=== PATIENT | female | born 1985 | race American Indian/Alaskan Native ===

== ENCOUNTER 2022-03-10 00:35 | Emergency (ER) | payer SELFPAY ==
[2022-03-10] MEDS ORDERED: SODIUM CHLORIDE 0.9% 1000 ML 1,000 ML IV ONE (04:37)
--- NOTE | 2022-03-10 05:46 | Emergency Department Report ---
ED Psych HPI - General Chief Complaint: Psych Stated Complaint: MH Time Seen by Provider: 03/10/22 05:44 Source: patient Mode of arrival: Ambulatory - History of Present Illness Initial Comments: pt is psychotic , history fo the same , auditory hallucination picked up by EMS in street , no SI or HI responding to internal stimuli -: unknown Associated Psychiatric Symptoms: racing thoughts, auditory hallucinations History of same: Yes Quality: constant Improves With: none Worsens With: none - Related Data Allergies Allergy/AdvReac Type Severity Reaction Status Date / Time peanut Allergy Swelling Verified 03/10/22 04:02 ED Review of Systems ROS: Stated complaint: MH Other details as noted in HPI Comment: Unobtainable due to pts medical conditions ED Past Medical Hx - Past Medical History Previous Medical History?: No Hx Hypertension: No - Social History Smoking Status: Current Every Day Smoker Substance Use Type: Marijuana, Methamphetamines ED Physical Exam - General Limitations: No Limitations General appearance: alert, anxious - Head Head exam: Present: atraumatic, normocephalic - Eye Eye exam: Present: normal appearance - ENT ENT exam: Present: mucous membranes moist - Neck Neck exam: Present: normal inspection - Respiratory Respiratory exam: Present: normal lung sounds bilaterally. Absent: respiratory distress - Cardiovascular Cardiovascular Exam: Present: normal rhythm, tachycardia. Absent: systolic murmur, diastolic murmur, rubs, gallop - GI/Abdominal GI/Abdominal exam: Present: soft, normal bowel sounds - Extremities Exam Extremities exam: Present: normal inspection - Back Exam Back exam: Present: normal inspection - Neurological Exam Neurological exam: Present: alert, oriented X3 - Psychiatric Psychiatric exam: Present: agitated, anxious, flat affect, manic - Skin Skin exam: Present: warm, dry, intact, normal color. Absent: rash ED Course Vital Signs 03/10/22 03/10/22 03/10/22 04:29 13:56 23:17 Temperature 97.3 F L 98.6 F 98.5 F Pulse Rate 136 H 105 H 94 H Respiratory 16 20 20 Rate Blood Pressure 125/87 112/81 140/71 [Left] O2 Sat by Pulse 20 L 100 100 Oximetry 03/11/22 03/11/22 03/11/22 11:22 13:24 13:59 Temperature Pulse Rate 94 H Respiratory 16 Rate Blood Pressure 138/84 [Left] O2 Sat by Pulse 99 99 99 Oximetry ED Medical Decision Making - Lab Data Result diagrams: 03/10/22 14:52 03/10/22 14:52 Critical care attestation.: If time is entered above; I have spent that time in minutes in the direct care of this critically ill patient, excluding procedure time. ED Disposition Clinical Impression: Psychosis Disposition: [facility] Is pt being admited?: No Does the pt Need Aspirin: No Condition: Undetermined Referrals: PRIMARY CARE, [Primary Care Provider] - 3-5 Days
[2022-03-10 15:10] LABS: Basophils # (Auto) 0.1 K/mm3 (0.0-0.1); Basophils % (Auto) 0.7 % (0.0-1.8); Eosinophils # (Auto) 0.3 K/mm3 (0.0-0.4); Eosinophils % (Auto) 3.5 % (0.0-4.3); Hematocrit 37.4 % (30.3-42.9); Lymphocytes % (Auto) 20.6 % (13.4-35.0); Mean Corpuscular HGB Conc 32 % (30-34); Mean Corpuscular Volume 81 fl (79-97); Monocytes # (Auto) 1.3 K/mm3 (0.0-0.8); Monocytes % (Auto) 13.7 % (0.0-7.3); Platelet Count 346 K/mm3 (140-440); Red Blood Count 4.64 M/mm3 (3.65-5.03); Red Cell Distribution Width 16.9 % (13.2-15.2)
--- NOTE | 2022-03-10 15:39 | Consultation ---
History of Present Illness - Reason for Consult Consult date: 03/10/22 Reason for consult: [facility] - History of Present Psychiatric Illness Admission Note 36 year old Female was seen in the ER today. Patient states that she was brought "because always freaking out". Patient states that " Melonie is my brother" and she is to "[place]" patient thoughts are disorganized. Patient admits to taking marijuana and methamphetamines. Patient has a past dx of Bipolar and schizophrenia HPI PAST PSYCHIATRIC HISTORY: Diagnoses: Bipolar, Schizophrenia. Suicide attempts or Self-harm behavior: Yes Prior psychiatric hospitalizations: Yes Substance Abuse history: Marijuana, Methamphetamines Previous psychiatric medications tried: Seroquel, Risperidone, [place] Outpatient treatment: PAST MEDICAL HISTORY: Family Psychiatric History None reported or documented SOCIAL HISTORY Marital Status: Single Living Arrangements: "[place]" Employment Status: Unemployed Access to guns/weapons: Education: History of Abuse: Legal History: REVIEW OF SYSTEMS ROS cannot be reliably obtained from the patient due to her confusion and somnolence. Constitutional: Negative for weight loss ENT: Negative for stridor Respiratory: Negative for cough or hemoptysis All other systems reviewed and are negative Diagnoses: Bipolar, Schizophrenia Treatment Plan Patient will be admitted for inpatient psychiatric evaluation, medication adjustment and close monitoring The patient's behavior, mood, sleep and appetite will be closely monitored. Patient will be enrolled in individual and group therapeutic sessions and encouraged to attend. Patient will be provided with a safe and structured environment. Patient's physical health needs will be addressed by the Hospitalist. Hospitalist Consulted Labs including CBC, CMP, Lipid profile and Hemoglobin A1C ordered Social Assessment will be completed and the System Trainer will work with patient and family to ensure a suitable and safe disposition Medication adjustment will be made as clinically indicated Usual Wellness Congregational/Preservation: - Start Trazodone 50 mg po QHS The patient agreed on the treatment plan, understood the risk, benefit, alternative treatment, potential consequence of no treatment, and gave informed consent. Medications and Allergies Allergies Allergy/AdvReac Type Severity Reaction Status Date / Time peanut Allergy Swelling Verified 03/10/22 04:02 Mental Status Exam - Vital signs Last Vital Signs Temp 98.6 F 03/10/22 13:56 Pulse 105 H 03/10/22 13:56 Resp 20 03/10/22 13:56 BP 112/81 03/10/22 13:56 Pulse Ox 100 03/10/22 13:56 Results Result Diagrams: 03/10/22 14:52 Abnormal lab results 03/10/22 Range/Units 14:52 MCH 26 L (28-32) pg RDW 16.9 H (13.2-15.2) % Lynn % (Auto) 13.7 H (0.0-7.3) % Lynn # (Auto) 1.3 H (0.0-0.8) K/mm3 All other labs normal.
[2022-03-10 16:11] LABS: Alanine Aminotransferase 17 units/L (7-56); Albumin 4.5 g/dL (3.9-5); BUN/Creatinine Ratio 23; Blood Urea Nitrogen 23 mg/dL (7-17); Calcium 9.4 mg/dL (8.4-10.2); Hemolysis Index 32
--- NOTE | 2022-03-10 16:23 | Event Note ---
Date: 03/10/22 Patient reassessed. States she is feeling fine. States he is hungry and requests meal tray. Upon further evaluation patient appears to have dis organized thoughts and claims that Nalini Wilhelm is her brother. She was also evaluated by mental health. Recommends inpatient psychiatric treatment.
[2022-03-10 16:38] LABS: Bilirubin,Urine NEG (Negative); Blood,Urine MOD (Negative); Color,Urine Yellow (Yellow); Urobilinogen,Urine < 2.0 mg/dL (<2.0)
[2022-03-10 16:46] LABS: Mucus,Urine 1+ /HPF
[2022-03-10 16:51] LABS: Benzodiazepines Screen,Urine Negative; Methadone Screen,Urine Negative; Opiate Screen,Urine Negative
[2022-03-10 17:02] LABS: Amphetamine Screen,Urine Positive; Cannabinoid Screen,Urine Positive; Cocaine Screen,Urine Positive
[2022-03-10] MEDS ORDERED: traZODone 50 MG TAB PO SCH (22:00)
[2022-03-11 14:00] VITALS: BP 138/84
== END 2022-03-11 13:59 | disposition still patient (30) ==
LOC: ED 00:35 → EEVIPCON 00:35 → ED 03-11 13:59
DX: F29 Unspecified psychosis not due to a substance or known physiological condition (principal); Z91.010 Allergy to peanuts
CPT/HCPCS: 36415; 80053; 80307; 80320; 81001; 84703; 85025; 87086; 99285; G0480